=== PATIENT | male | born 1940 | race Caucasian/White ===

== ENCOUNTER 2023-11-16 13:31 | Emergency (ER) | payer OTHER, SELFPAY ==
[2023-11-16 13:38] VITALS: BP 176/86
--- NOTE | 2023-11-16 15:59 | ED.MUSCINJ ---
HPI-Injury
General
Chief Complaint: Fall
Source: patient
Exam Limitations: none
Time Seen by Provider: 11/16/23 15:40
Travel History
Have you had any contact with someone who has COVID-19?: No
Do you have any symptoms of coronavirus? Fever > 100 degrees, chills, cough, shortness of breath, sore throat, loss of taste or smell, muscle aches, or headache?: No
History of Present Illness-Injury
Initial Injury comments:
83-year-old male presents complaining of persistent right lateral chest wall pain after a fall he had 4 days ago. He fell onto a hard object. He notes increased pain with motion and deep breathing. He denies shortness of breath. He is not
anticoagulated. No head injury. No hematuria. No other
Past History
Past History
ED Past Medical History: HTN
ED Past Surgical History: Tonsilectomy
Social History
Tobacco: Non-smoker
Alcohol: None
Drug: None
Phy Exam
Physical Exam
Physical Exam:
General: Well-appearing male no acute respiratory distress
Musculoskeletal exam: Spine is nontender. He is tender over the right lateral ribs with overlying ecchymosis but no step-off or deformity. No subcutaneous emphysema
Heart: Regular rate and rhythm
Lungs: Breath sounds heard throughout
Extremities: No cyanosis
Injury Course
Orders/Labs/Results
Orders:
Orders
11/16/23 13:41
Ribs, Right 3 View W/PA Chest [CR Ribs-right 3 Vw W/pa Chest*] Urgent
Comment:
Reason For Exam: fall
11/16/23 15:59
Ketorolac [Toradol] 30 mg IM NOW STA
MDM/Problems Addressed
Differential Diagnosis Includes:
Right lateral chest wall pain after fall. Consider rib fracture versus contusion versus pneumothorax
I personally visualized x-rays which demonstrate minimally displaced fractures of the eighth ninth and 10th rib. There is no pneumothorax. Patient given Toradol IM and will be Robaxin. Stable condition
*Critical Care Note
Total Time (30-74mins, 75-104mins- exclusive of procedures): Not Applicable
ED Attending Note
-
Portions of this chart may have been created with voice recognition software.� Occasional wrong word or��sound alike� substitutions may have occurred due to the inherent limitations of voice recognition software.
Discharge Plan
Departure
Patient Disposition: Home (Routine Discharge)
Date of Disposition: 11/16/23
Time of Disposition: 16:02
Patient with high blood pressure during this ER visit?: No
Discharge Problem:
Fracture of rib
Instructions: Rib Fracture
Prescriptions:
New
methocarbamol 500 mg tablet
500 mg PO Q8H PRN (Reason: spasm) Qty: 10 0RF
No Action
atorvastatin 20 MG tablet
20 mg PO QPM Qty: 30 1RF
lisinopril 20 MG tablet
20 mg PO HS Qty: 30 1RF
aspirin 81 MG tablet,delayed release (DR/EC)
81 mg PO DAILY
Vanquish
1 tab PO PRN PRN (Reason: headache)
oxycodone-acetaminophen 5 MG/325 MG tablet
1 tab PO Q4HPRN PRN (Reason: pain) Qty: 20 0RF
[place] Saline Gel
1 applic topical BID Qty: 14.1 0RF
Referrals:
Lucio Palmer DO [Family Provider] -
Activity Restrictions/Additional Instructions:
Avoid heavy lifting or twisting. Continue with Tylenol and Advil. Use muscle relaxers as needed for spasm. Return here for increasing pain shortness of breath or fever
Interventions
Interventions:
*ED COVID-19 Vaccine History Last Done: 11/16/23 15:25
Discharge Date and Time
Print Language: [place]
[2023-11-16] MEDS: TORADOL 30 MG IM (16:23)
== END 2023-11-16 16:50 | disposition home or self-care (01) ==
LOC: EMR 13:31
PROVIDERS: EMERGENCY PHYSICIAN Emergency Medicine; FAMILY PHYSICIAN Family Medicine
DX: S22.41XA Multiple fractures of ribs, right side, initial encounter for closed fracture (principal); W19.XXXA Unspecified fall, initial encounter; I10 Essential (primary) hypertension
CPT/HCPCS: 99284; 96372; 71101